=== PATIENT | male | born 1975 | race African-American/Black ===

== ENCOUNTER 2017-09-03 17:25 | Emergency (ER) | payer SELFPAY ==
[2017-09-03 17:46] VITALS: BP 148/79; PULSE 89; RESP 18; TEMP 98.3; O2SAT 100
[2017-09-03 20:40] LABS: AUTOMATED NEUTROPHIL # 2.3 TH/MM3 (1.8-7.7); BASOPHIL % 0.3 % (0.0-2.0); EOSINOPHIL # 0.1 TH/MM3 (0-0.4); EOSINOPHIL % 2.5 % (0.0-4.0); HEMATOCRIT 39.4 % (39.0-51.0); HEMOGLOBIN 13.5 GM/DL (13.0-17.0); LYMPHOCYTE # 1.7 TH/MM3 (1.0-4.8); MEAN CELL VOLUME 97.3 FL (80.0-100.0); MEAN CORPUSCULAR HEMOGLOBIN 33.4 PG (27.0-34.0); MEAN CORPUSCULAR HGB CONC 34.3 % (32.0-36.0); MEAN PLATELET VOLUME 8.6 FL (7.0-11.0); MONO % 10.4 % (0.0-8.0); MONOCYTE # 0.5 TH/MM3 (0-0.9); NEUT % 49.8 % (16.0-70.0); PLATELET COUNT 249 TH/MM3 (150-450); RED BLOOD COUNT 4.05 MIL/MM3 (4.50-5.90); RED CELL DISTRIBUTION WIDTH 13.2 % (11.6-17.2); WHITE BLOOD COUNT 4.6 TH/MM3 (4.0-11.0)
[2017-09-03 20:55] LABS: PROTHROMBIN TIME - PATIENT 9.8 SEC (9.8-11.6)
[2017-09-03 21:08] LABS: BICARBONATE 30.3 MEQ/L (21.0-32.0); CALCIUM 9.5 MG/DL (8.5-10.1); CREATININE 1.13 MG/DL (0.60-1.30)
--- NOTE | 2017-09-03 21:14 | PD ---
HPI Chief Complaint: Complaint Time Seen by Provider: 20:57 (Monae Figueroa) Time Seen by Provider: 21:16 (Marin Nelson MD) Travel History International Travel<30 days: No Contact w/Intl Traveler<30days: No Traveled to known affect area: No (Monae Figueroa) History of Present Illness HPI 42-year-old male presents emergency department complaining of intermittent bloody discharge, dysuria and hematuria for approximately 1 week. States that he had hernia surgery August 27 with a placed urinary catheter and the urinary catheter balloon was inadvertently expanded while inside the urethra. Says he is having right groin pain that has been persistent since his surgery. Says he is able to urinate spontaneously without issue but again states that he does have some burning when he pees. States he was evaluated by urology and discharged with the recommendation to follow-up with outpatient urology. States that she was due to see a urologist recently but because of insurance issues he was unable to go. States he went to his primary care physician who recommended [facility]. He called his urology office today and told him to come to the emergency department. Currently he says that he is having lower abdominal and back pain. Denies fevers or chills. Denies nausea, vomiting or diarrhea. Says he has a history of high blood pressure, chronic back pain. (Monae Figueroa) [facility] Social History Tobacco Use: Yes (Monae Figueroa) Allergies-Medications (Allergen,Severity, Reaction): Coded Allergies: No Known Allergies (Unverified , 09/03/17) Reported Meds & Prescriptions Reported Meds & Active Scripts Active Clindamycin (Clindamycin HCl) 300 Mg Cap 300 Mg PO Q6H 7 Days (Marin Nelson MD) Review of Systems Except as stated in HPI: all other systems reviewed are Neg (Monae Figueroa) Physical Exam Narrative GENERAL: Well-developed, well-nourished in no apparent distress SKIN: Focused skin assessment warm/dry. HEAD: Atraumatic. Normocephalic. EYES: Pupils equal and round. No scleral icterus. No injection or drainage. ENT: No nasal bleeding or discharge. Mucous membranes pink and moist. NECK: Trachea midline. No JVD. CARDIOVASCULAR: Regular rate and rhythm. No murmur appreciated. RESPIRATORY: No accessory muscle use. Clear to auscultation. Breath sounds equal bilaterally. GASTROINTESTINAL: Abdomen soft, nondistended. Mild tenderness palpation to the right periumbilical, right groin area. Healing wounds to this area consistent with patient's hernia surgery. MUSCULOSKELETAL: No obvious deformities. No clubbing. No cyanosis. No edema. CVA tenderness on the right NEUROLOGICAL: Awake and alert. No obvious cranial nerve deficits. Motor grossly within normal limits. Normal speech. PSYCHIATRIC: Appropriate mood and affect; insight and judgment normal. (Monae Figueroa) Data Data Last Documented VS Vital Signs Date Time Temp Pulse Resp B/P (MAP) Pulse Ox O2 Delivery O2 Flow Rate FiO2 09/03/17 17:46 98.3 89 18 148/79 (102) 100 (Marin Nelson MD) Orders Orders Basic Metabolic Panel (Bmp) (09/03/17 17:49) Complete Blood Count With Diff (09/03/17 17:49) Prothrombin Time / Inr (Pt) (09/03/17 17:49) Act Partial Throm Time (Ptt) (09/03/17 17:49) Urinalysis - C+S If Indicated (09/03/17 17:49) Ct Abd/Pel W Iv Contrast(Rout) (09/03/17 ) Iohexol 350 Inj (Omnipaque 350 Inj) (09/03/17 23:11) Clindamycin 600 Mg/Ns Premix (Cleocin 60 (09/03/17 23:30) Ed Discharge Order (09/03/17 23:34) (Marin Nelson MD) Labs Laboratory Tests Test 09/03/17 20:20 09/03/17 23:16 White Blood Count 4.6 TH/MM3 Red Blood Count 4.05 MIL/MM3 Hemoglobin 13.5 GM/DL Hematocrit 39.4 % Mean Corpuscular Volume 97.3 FL Mean Corpuscular Hemoglobin 33.4 PG Mean Corpuscular Hemoglobin Concent 34.3 % Red Cell Distribution Width 13.2 % Platelet Count 249 TH/MM3 Mean Platelet Volume 8.6 FL Neutrophils (%) (Auto) 49.8 % Lymphocytes (%) (Auto) 37.0 % Monocytes (%) (Auto) 10.4 % Eosinophils (%) (Auto) 2.5 % Basophils (%) (Auto) 0.3 % Neutrophils # (Auto) 2.3 TH/MM3 Lymphocytes # (Auto) 1.7 TH/MM3 Monocytes # (Auto) 0.5 TH/MM3 Eosinophils # (Auto) 0.1 TH/MM3 Basophils # (Auto) 0.0 TH/MM3 CBC Comment DIFF FINAL Differential Comment Prothrombin Time 9.8 SEC Prothromb Time International Ratio 1.0 RATIO Activated Partial Thromboplast Time 28.8 SEC Blood Urea Nitrogen 14 MG/DL Creatinine 1.13 MG/DL Random Glucose 71 MG/DL Calcium Level 9.5 MG/DL Sodium Level 142 MEQ/L Potassium Level 4.2 MEQ/L Chloride Level 105 MEQ/L Carbon Dioxide Level 30.3 MEQ/L Anion Gap 7 MEQ/L Estimat Glomerular Filtration Rate 86 ML/MIN Urine Color YELLOW Urine Turbidity CLEAR Urine pH 6.0 Urine Specific [place] GREATER THAN 1.050 Urine Protein TRACE mg/dL Urine Glucose (UA) NEG mg/dL Urine Ketones NEG mg/dL Urine Occult Blood MOD Urine Nitrite NEG Urine Bilirubin NEG Urine Urobilinogen LESS THAN 2.0 MG/DL Urine Leukocyte Esterase NEG Urine RBC 92 /hpf Microscopic Urinalysis Comment CULT NOT INDICATED (Marin Nelson MD) MDM Medical Decision Making Medical Screen Exam Complete: Yes Emergency Medical Condition: Yes Differential Diagnosis Urethritis, pyelonephritis, cystitis, urethral injury Narrative Course 42-year-old male presents emergency department complaining of right groin pain, hematuria since his surgery August 27. He was advised to follow-up with an outpatient urologist however, states he is having difficulty because his insurance has recently changed. Vital signs are stable. Afebrile. Labs and imaging studies ordered. Last Impressions Abdomen/Pelvis CT 09/03/17 0000 Signed Impressions: Service Date/Time: Sunday, September 03, 2017 22:11 - CONCLUSION: Postoperative right inguinal hernia repair with some stranding in the subcutaneous fat of the lower anterior abdominal wall and a small amount of fluid along the inner aspect of the lower rectus muscle on the right. There is also some inflammatory change or edema in the fat around the umbilicus on the right side. Otherwise no acute findings within the abdomen or pelvis. Venancio Bentley MD CBC & BMP Diagram 09/03/17 20:20 Calcium Level 9.[address] Dee, urology and explained my findings to the patient. He agreed that antibiotics and outpatient follow-up with urology was appropriate for his intermittent hematuria. Note that CT results were not available at the time of this conversation. Advised that patient follow-up with urology as soon as possible. I spoke with my attending regarding my findings of the CT and labs. He recommended clindamycin 600mg IV, then DC to follow up with his surgeon tomorrow. Clindamycin for outpatient use. Pt states understanding and will comply. Return for worsening or persistent symptoms. (Monae Figueroa) Diagnosis Primary Impression: Urethritis Additional Impression: Post-operative state Referrals: Primary Care Physician Urologist Additional Instructions: Take all medications as prescribed. Follow-up with urologist as discussed. Follow up with your surgeon TOMORROW. Take all medications as prescribed. If her symptoms persist or worsen return to the emergency department. Scripts Clindamycin (Clindamycin) 300 Mg Cap 300 MG PO Q6H for Infection for 7 Days, #28 CAP 0 Refills Prov: Marin Neslon MD 09/03/17 Disposition: 01 DISCHARGE HOME Condition: Stable Monae Figueroa Sep 03, 2017 21:14 Marin Nelson MD Sep 04, 2017 19:10
--- NOTE | 2017-09-03 22:53 | RADRPT ---
EXAM DATE/TIME: 09/03/2017 22:11 [place] COMPARISON: No previous studies available for comparison. INDICATIONS : Abdomen pain. IV CONTRAST: 100 cc Omnipaque 350 (iohexol) IV ORAL CONTRAST: No oral contrast ingested. RADIATION DOSE: 5.86 CTDIvol (mGy) MEDICAL HISTORY : Hypertension. SURGICAL HISTORY : None. ENCOUNTER: Initial ACUITY: 1 day PAIN SCALE: 5/10 LOCATION: Bilateral abdomen TECHNIQUE: Volumetric scanning of the abdomen and pelvis was performed. Using automated exposure control and ad justment of the mA and/or kV according to patient size, radiation dose was kept as low as reasonably achievable to obtain optimal diagnostic quality images. DICOM format image data is available electro nically for review and comparison. FINDINGS: Limited bases are clear. No acute findings in the liver, spleen, adrenals, kidneys or pancreas. No calcified gallstones. No free air or free fluid. No bowel obstruction. There is a stranding of the fat around the umbilicus that could represent some mild inflammatory change. There is also stranding of fat in the lower ante rior abdominal wall with previous right hernia repair. No pelvic masses or adenopathy. No free fluid. CONCLUSION: Postoperative right inguinal hernia repair with some stranding in the subcutaneous fat of the lower a nterior abdominal wall and a small amount of fluid along the inner aspect of the lower rectus muscle on the right. There is also some inflammatory change or edema in the fat around the umbilicus on the right side. Otherwise no acute findings within the abdomen or pelvis. Venancio Bentley MD on September 03, 2017 at 22:46 Board Certified Radiologist. This report was verified electronically.
[2017-09-03] MEDS ORDERED: IOHEXOL 350 MG/ML 10 ML VIAL (for RAD DIAG) IVCONTRAST ONE (23:11)
[2017-09-03] MEDS ORDERED: CLIN300C5 PO (23:27)
[2017-09-03 23:30] LABS: BILIRUBIN, URINE NEG (NEG); BLOOD, URINE MOD (NEG); GLUCOSE,URINE NEG (NEG); KETONE, URINE NEG (NEG); NITRITE,URINE NEG (NEG); URINE COLOR YELLOW (YELLW/STRAW); URINE LEUKOCYTE ESTERASE NEG (NEG)
[2017-09-03] MEDS ORDERED: CLINDAMYCIN 600 MG/NS PREMIX 50 ML IV ONE (23:30)
== END 2017-09-04 00:08 | disposition home or self-care (01) ==
LOC: NED 17:25 → NEPA 09-04 00:08
DX: N34.2 Other urethritis (principal); R31.9 Hematuria, unspecified; Z72.0 Tobacco use
CPT/HCPCS: 74177; 80048; 81001; 85025; 85610; 85730; 96374; 99284; Q9967